=== PATIENT | female | born 1955 | race Caucasian/White ===

== ENCOUNTER → 2018-10-23 | Outpatient (REF) | payer OTHER, BC ==
[~2018-10-23] MED LIST: ASPI81TA94 PO; ATOR10TA24 PO; CALC-515 PO; CETI10CA8 PO; CHOL100052 PO; CHOL200074 PO; FLU60SYR30 IM ONLY; FLU60VIA41 IM; IBUP200C74 PO; MULT-19 PO; OMEG-24 PO; OMEG500C5 PO
== END ==
LOC: ZZSENDIN 17:00
PROVIDERS: ATTEND Physician Assistant
DX: R30.0 Dysuria (principal); B96.20 Unspecified Escherichia coli [E. coli] as the cause of diseases classified elsewhere
CPT/HCPCS: 81001; 87077; 87088; 87186

== ENCOUNTER → 2018-10-24 | Outpatient (CLI) | payer BC, OTHER ==
--- NOTE | 2018-10-25 13:13 | RADIOLOGY IMAGING REPORT ---
FACILITY: [facility] PATIENT NAME: MYKEL THAKKAR : [id number] MR: [id number] V: [id number] EXAM DATE: [id number] ORDERING PHYSICIAN: MOHSEN LAO TECHNOLOGIST: Amie Walker PROCEDURE:BILATERAL DIGITAL SCREENING MAMMOGRAM WITH CAD ASSISTED INTERPRETATION & 3D TOMOSYNTHESIS COMPARISON:Prior mammograms 04/11/17, 02/10/16, 02/01/15, 12/05/13. INDICATIONS:screening FINDINGS: The breasts are heterogeneous dense which may obscure small masses. The parenchymal pattern has remained stable allowing for difference in mammographic technique & patient positioning. There is no evidence of malignant appearing mass, malignant appearing calcifications or other secondary sign of malignancy in either breast. DIAGNOSTIC CATEGORY 1--NEGATIVE. RECOMMENDATIONS: ROUTINE MAMMOGRAM AND CLINICAL EVALUATION. IMPRESSION: BIRADS 1: Negative. No significant abnormality is seen. Dictated by: Erinn Fair M.D. on 10/24/2018 at 17:23 Transcribed by: ROMAINE on 10/25/2018 at 8:26 Approved by: Erinn Fair M.D. on 10/25/2018 at 13:12 [facility]
== END ==
LOC: MAMO 00:34
PROVIDERS: ATTEND Physician Assistant
DX: Z12.31 Encounter for screening mammogram for malignant neoplasm of breast (principal)
CPT/HCPCS: 77063; 77067